=== PATIENT | male | born 1975 | race Caucasian/White ===

== ENCOUNTER 2024-10-08 11:12 | Emergency (ER) | payer BC, OTHER ==
[~2024-10-08] VITALS: Ht 180.3 cm; Wt 119.1 kg
[2024-10-08] MEDS ORDERED: TRAM50TA2 PO (11:32)
[2024-10-08 11:39] VITALS: BP 145/100; PULSE 103; RESP 20; TEMP 98; O2SAT 95
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
[2024-10-08] MEDS: KETOROLAC TROMETH 60MG/2ML VIAL IM ONE (11:44)
== END 2024-10-08 11:53 | disposition home or self-care (01) ==
LOC: ER 11:12
DX: M54.59 Other low back pain (principal); F17.210 Nicotine dependence, cigarettes, uncomplicated; Z90.49 Acquired absence of other specified parts of digestive tract; Z88.8 Allergy status to other drugs, medicaments and biological substances
CPT/HCPCS: 96372; 99283; J1885